=== PATIENT | male | born 1985 | race African-American/Black ===

== ENCOUNTER 2018-09-27 17:43 | Emergency (ER) | payer OTHER ==
[~2018-09-27] VITALS: Ht 172.7 cm; Wt 95.3 kg
[2018-09-27] MEDS ORDERED: IBUPROFEN 600 MG TAB PO ONE (18:15)
[2018-09-27] MEDS ORDERED: HYDROCODONE/APAP 10MG-325MG TAB PO ONE (18:15)
[2018-09-27] MEDS ORDERED: HYDROCODONE/APAP 10MG-325MG TAB ONE (18:20)
[2018-09-27] MEDS ORDERED: IBUPROFEN 600 MG TAB ONE (18:21)
--- NOTE | 2018-09-27 19:23 | Diagnostic Imaging Report ---
Exam: Left ankle 3 views and foot 3 views History: Pain Comparison: None. Findings: No fracture or malalignment. Joint spaces preserved. No abnormal soft tissue calcification or soft tissue defect. Impression: No acute osseous abnormality Signed by: Dr. Colin Patel M.D. on 09/27/2018 7:20 PM
== END 2018-09-27 19:58 | disposition home or self-care (01) ==
LOC: EDBD 17:43 → ER 17:43
DX: S97.82XA Crushing injury of left foot, initial encounter (principal); W22.8XXA Striking against or struck by other objects, initial encounter; Y92.89 Other specified places as the place of occurrence of the external cause
CPT/HCPCS: 99283